=== PATIENT | female | born 1955 | race Asian ===

== ENCOUNTER 2017-07-29 06:23 | Day surgery (SDC) | payer OTHER ==
[~2017-07-29] VITALS: Ht 152.4 cm; Wt 47.3 kg
[~2017-07-29 06:23] MED LIST: ALBU8.5H8 IH; AZIT250T9 PO; FLUT16H NASAL; MELO-107 PO; MOME13HF IH; MONT10TA21 PO; OMEP20 PO; PRED10 PO
[2017-07-29] MEDS ORDERED: SODIUM CHLORIDE 0.9% 1,000 ML IV ONE ×2 (06:30→07:03)
[2017-07-29] MEDS ORDERED: FentaNYL CITRATE-PF 100 MCG/2 ML VIAL ONE (08:10)
[2017-07-29] MEDS ORDERED: MIDAZOLAM HCL 2 MG/2 ML VIAL ONE (08:10)
[2017-07-29] MEDS ORDERED: MethylPREDNISolone SOD SUCC 125 MG/2 ML VIAL IVP ONE (09:30)
[2017-07-29] MEDS ORDERED: MethylPREDNISolone SOD SUCC 125 MG/2 ML VIAL ONE (09:42)
[2017-07-29] MEDS ORDERED: BENZOCAINE 20% 50 MCG/SPRAY 57 GM ONE (18:06)
[2017-07-29] MEDS ORDERED: LIDOCAINE HCL 2% 30 ML JELLY ONE (18:06)
[2017-07-29] MEDS ORDERED: EPINEPHrine 1:1,000 [1 MG/ML] AMP ONE (18:06)
[2017-07-29] MEDS ORDERED: ALBUTEROL SULFATE 2.5 MG/0.5 ML NEB SOLUTION NEB ONE (18:06)
[2017-07-29] MEDS ORDERED: OXYGEN THERAPY IH SCH (20:00)
== END 2017-07-29 11:11 | disposition home or self-care (01) ==
LOC: SURGERY 06:23
PROVIDERS: ATTEND Internal Medicine Critical Care Medicine
DX: J38.4 Edema of larynx (principal); B37.0 Candidal stomatitis; J47.9 Bronchiectasis, uncomplicated; Z79.2 Long term (current) use of antibiotics; Z79.899 Other long term (current) drug therapy
CPT/HCPCS: 31623; 31624; 71045; 87015; 87070; 87205; 87220; 88108; 88312; J0171; J2250; J2930; J3010; J7030

== ENCOUNTER → 2019-12-02 | Day surgery (SDC) | payer MEDICARE, OTHER ==
[~2019-12-02] VITALS: Ht 152.4 cm; Wt 50.9 kg
[~2019-12-02] MED LIST changes: +ALBUTEROL SULFATE 2.5 MG/0.5 ML NEB SOLUTION NEB ONE; +AZIT-84 PO; -AZIT250T9 PO; +BENZOCAINE 20% 50 MCG/SPRAY 57 GM ONE; +FentaNYL CITRATE-PF 100 MCG/2 ML VIAL ONE; +LIDOCAINE 2% 30 ML JELLY ONE; +LIDOCAINE 4% 50 ML SOLUTION ONE; +MIDAZOLAM HCL 2 MG/2 ML VIAL ONE; +MethylPREDNISolone SOD SUCC 125 MG/2 ML VIAL IVP ONE; +MethylPREDNISolone SOD SUCC 125 MG/2 ML VIAL ONE; +ONDANSETRON HCL 4 MG/2 ML VIAL IVP ONE; +OXYGEN THERAPY IH SCH; +SODIUM CHLORIDE 0.9% 1,000 ML IV ONE; +SODIUM CHLORIDE 0.9% 1,000 ML ONE
== END | disposition home or self-care (01) ==
LOC: SURGERY 05:56
PROVIDERS: ATTEND Internal Medicine Critical Care Medicine
DX: J38.4 Edema of larynx (principal); B37.0 Candidal stomatitis; Z86.11 Personal history of tuberculosis; Z11.59 Encounter for screening for other viral diseases
CPT/HCPCS: 31623; 31624; 71045; 87015; 87070; 87077; 87101; 87186; 87205; 87206; 87220; 87635; 88108; 88312; J2250; J2405; J2930; J3010; J7030